=== PATIENT | female | born 1965 | race Caucasian/White ===

== ENCOUNTER 2017-09-19 12:31 | Emergency (ER) | payer MEDICARE ==
[2017-09-19 15:28] LABS: BASOPHILS 0.1 % (0-2); EOSINOPHILS 1.5 % (0-7); HEMATOCRIT 43.7 % (36.0-48.0); HEMOGLOBIN 14.7 g/dL (12-16); IMMATURE GRANULOCYTES 0.1 % (0-5); MCH 33.1 pg (26.0-34.0); MCHC 33.6 g/dL (31.0-37.0); MCV 98.4 fL (80.0-100.0); MEAN PLATELET VOLUME 9.8 fL (7.4-10.4); MONOCYTES 7.9 % (2-11); NEUTROPHILS 55.4 % (40-80); PLATELET COUNT 249 10x3/uL (130-400); RBC 4.44 10x6/uL (4.00-5.40); RDW 12.5 % (11.5-14.5); WBC 7.5 10x3/uL (4.8-10.8)
[2017-09-19 15:51] LABS: ALBUMIN 3.4 g/dL (3.4-5.0); BILIRUBIN - TOTAL 0.2 mg/dL (0.2-1.3); CALCIUM 8.9 mg/dL (8.5-10.1); CREATININE - SERUM 0.9 mg/dL (0.6-1.3); MAGNESIUM - SERUM 2.2 mg/dL (1.8-2.4); PROTEIN - SERUM 6.8 g/dL (6.4-8.2)
[2017-09-19 16:05] LABS: UDS - AMPHET NEGATIVE QUAL (NEGATIVE); UDS - BARB NEGATIVE QUAL (NEGATIVE); UDS - BENZO NEGATIVE QUAL (NEGATIVE); UDS - COCAINE POSITIVE QUAL (NEGATIVE); UDS - OPIATE NEGATIVE QUAL (NEGATIVE); UDS - PCP NEGATIVE QUAL (NEGATIVE); UDS - THC NEGATIVE QUAL (NEGATIVE)
[2017-09-19 16:15] LABS: APPEARANCE CLEAR (CLEAR); BILIRUBIN NEGATIVE (NEGATIVE); COLOR YELLOW (YELLOW); GLUCOSE NEGATIVE (NEGATIVE); KETONE NEGATIVE (NEGATIVE); NITRITE NEGATIVE (NEGATIVE); PROTEIN NEGATIVE (NEGATIVE); RED CELLS - URINE 0-5 /hpf (0-5); UROBILINOGEN NORMAL (NORMAL)
[2017-09-19 16:16] LABS: BACTERIA MODERATE /hpf (NONE SEEN)
== END 2017-09-19 16:10 | disposition home or self-care (01) ==
LOC: D.ER 12:31
PROVIDERS: Nurse Practitioner Family
DX: J44.1 Chronic obstructive pulmonary disease with (acute) exacerbation (principal); F32.9 Major depressive disorder, single episode, unspecified

== ENCOUNTER 2019-06-24 11:38 | Emergency (ER) | payer MEDICARE ==
[~2019-06-24] VITALS: Ht 160 cm; Wt 43.2 kg
[2019-06-24 11:49] VITALS: BP 131/77; Ht 160 cm; Wt 43.2 kg
[2019-06-24] MEDS ORDERED: VOLTAREN75 MG PO (12:26)
[2019-06-24] MEDS ORDERED: CYCLOBENZAPRINE10 MG PO (12:26)
== END 2019-06-24 12:54 | disposition home or self-care (01) ==
LOC: D.ER 11:38
DX: M79.18 Myalgia, other site (principal)